=== PATIENT | female | born 1995 | race Native Hawaiian/Other Pacific Islander ===

== ENCOUNTER 2017-11-05 13:50 | Emergency (ER) | payer OTHER ==
[~2017-11-05] VITALS: Ht 165.1 cm; Wt 46.7 kg
== END 2017-11-05 14:34 | disposition home or self-care (01) ==
LOC: ED 13:50
DX: H92.03 Otalgia, bilateral (principal)
CPT/HCPCS: 99281

== ENCOUNTER 2022-12-02 11:09 | Outpatient (CLI) | payer OTHER | END 2022-12-02 19:21 | disposition home or self-care (01) | LOC: RAD 11:09 | PROVIDERS: ATTEND Nurse Practitioner Family | DX: M54.51 Vertebrogenic low back pain (principal); M54.6 Pain in thoracic spine ==

== ENCOUNTER 2023-02-23 09:16 | Outpatient (CLI) | payer OTHER | END 2023-02-23 19:48 | disposition home or self-care (01) | LOC: MRI 09:16 | PROVIDERS: ATTEND Physician Assistant | DX: M41.9 Scoliosis, unspecified (principal) ==

== ENCOUNTER 2023-05-13 13:51 | Outpatient (CLI) | payer OTHER | END 2023-05-13 18:41 | disposition home or self-care (01) | LOC: RAD 13:51 | PROVIDERS: ATTEND Orthopaedic Surgery | DX: M25.562 Pain in left knee (principal) ==